=== PATIENT | male | born 1945 | race Caucasian/White ===

== ENCOUNTER 2023-11-21 19:23 | Inpatient (IN) | payer BC, OTHER ==
[~2023-11-21] VITALS: Ht 182.9 cm; Wt 112.3 kg
[2023-11-21 20:11] LABS: Basophils # (auto) 0 10 ^3/uL (0-0.2); Basophils % (auto) 0.6 % (0.0-2.0); Eosinophils # (auto) 0.2 10 ^3/uL (0-0.8); Eosinophils % (auto) 3.7 % (0.0-7.0); Hematocrit 42.1 % (41.0-53.0); Hemoglobin 14.2 g/dL (13.5-17.5); Lymphocytes # (auto) 1.3 10 ^3/uL (0.4-5.4); Lymphocytes % (auto) 26.2 % (10.0-50.0); Mean Corpuscular Hgb Conc. 33.7 g/dL (32.0-36.0); Mean Corpuscular Volume 94.8 fL (80.0-100.0); Monocytes # (auto) 0.3 10 ^3/uL (0-1.3); Monocytes % (auto) 6.1 % (0.0-12.0); Neutrophils # (auto) 3.2 10 ^3/uL (1.6-8.6); Neutrophils % (auto) 63.4 % (37.0-80.0); Nucleated Red Blood Cells % 0.1 %; Platelet Count (auto) 211 10^3/uL (140-450); Red Blood Cells 4.44 10^6/uL (4.5-5.90); Red Cell Distribution Width 13.2 % (11.8-14.3)
[2023-11-21] MEDS: SODIUM CHLORIDE 0.9% 500 ML IVB ONE (20:13)
[2023-11-21 20:30] LABS: Alanine Aminotransferase 35 U/L (7-40); Alkaline Phosphatase 108 U/L (46-116); Anion Gap 6 (5-15); Aspartate Aminotransferase 21 U/L (13-40); BUN/Creatinine Ratio 15.9 (10.0-20.0); Blood Alcohol < 3.0 mg/dL (<10); Blood Urea Nitrogen 13 mg/dL (9-23); Calcium 9.7 mg/dL (8.7-10.4); Carbon Dioxide 28 mmol/L (20-31); Chloride 106 mmol/L (98-107); Glucose 142 mg/dL (74-106); Potassium 3.8 mmol/L (3.5-5.1); Sodium 140 mmol/L (136-145)
[2023-11-21 20:31] LABS: Bilirubin, Total 0.2 mg/dL (0.2-1.0); Total Protein 7.1 g/dL (5.7-8.2)
[2023-11-21 20:43] VITALS: PULSE 67; RESP 20; O2SAT 96
[2023-11-21] MEDS ORDERED: DOCUSATE SOD 100 MG CAP PO PRN (23:00)
[2023-11-21] MEDS ORDERED: HYDROcodone-ACET 5/325MG TAB PO PRN (23:00)
[2023-11-21] MEDS ORDERED: MORPHINE SULFATE INJ 2 MG/ml SYRG IV PRN (23:00)
[2023-11-21] MEDS ORDERED: NITROGLYCERIN 0.4 MG SL TAB SL PRN (23:00)
[2023-11-21] MEDS ORDERED: LORazepam 2MG/ML-1ML VIAL IV PRN (23:00)
[2023-11-21] MEDS: SODIUM CHLORIDE 0.9% 1,000 ML IV SCH (23:24)
[2023-11-21 23:54] LABS: Urine Bacteria FEW /hpf (None Seen); Urine Blood Negative /uL (Negative); Urine Clarity Turbid (Clear); Urine Mucus FEW (None Seen); Urine Protein, UAD Negative (Negative); Urine Specific Gravity 1.014 (1.001-1.035); Urine Urobilinogen Normal (Negative); Urine WBC 8 /hpf (0 - 3); Urine WBC Clumps PRESENT /hpf (None Seen)
[2023-11-21 23:55] LABS: Amphetamine Screen, Urine Neg (NEGATIVE); Barbiturate Scree,Urine Neg (NEGATIVE); Benzodiazephine Screen, Urine Pos (NEGATIVE); Cannabinoid Screen, Urine Neg (NEGATIVE); Cocaine Screen, Urine Neg (NEGATIVE); Opiate Scree,Urine Neg (NEGATIVE); Phencyclidine Screen, Urine Neg (NEGATIVE)
[2023-11-21 23:59] LABS: Urine Color STRAW (Yellow)
[2023-11-22] VITALS (9 sets, daily range): BP systolic 105–170; BP diastolic 45–91; PULSE 48–109; RESP 16–19; TEMP 97.6–98.5; O2SAT 0–96
[2023-11-22] MEDS: ACETAMINOPHEN 325 MG TAB PO PRN (01:07)
[2023-11-22 06:45] LABS: Basophils # (auto) 0 10 ^3/uL (0-0.2); Basophils % (auto) 0.2 % (0.0-2.0); Eosinophils # (auto) 0.2 10 ^3/uL (0-0.8); Eosinophils % (auto) 2.1 % (0.0-7.0); Hematocrit 45.1 % (41.0-53.0); Hemoglobin 15.5 g/dL (13.5-17.5); Lymphocytes # (auto) 1.6 10 ^3/uL (0.4-5.4); Lymphocytes % (auto) 22.5 % (10.0-50.0); Mean Corpuscular Hemoglobin 32.6 pg (28.0-32.0); Mean Corpuscular Hgb Conc. 34.3 g/dL (32.0-36.0); Monocytes # (auto) 0.4 10 ^3/uL (0-1.3); Monocytes % (auto) 6.2 % (0.0-12.0); Platelet Count (auto) 214 10^3/uL (140-450); Red Blood Cells 4.75 10^6/uL (4.5-5.90); Red Cell Distribution Width 13.2 % (11.8-14.3); White Blood Cell 7.3 10^3/uL (4.4-10.8)
[2023-11-22 07:02] LABS: Anion Gap 8 (5-15); Carbon Dioxide 26 mmol/L (20-31); Chloride 110 mmol/L (98-107); Potassium 3.2 mmol/L (3.5-5.1); Sodium 144 mmol/L (136-145)
[2023-11-22 07:04] LABS: Calcium 9.5 mg/dL (8.7-10.4)
[2023-11-22 07:08] LABS: BUN/Creatinine Ratio 13.3 (10.0-20.0); Blood Urea Nitrogen 8 mg/dL (9-23); Glucose 111 mg/dL (74-106)
[2023-11-22] MEDS: levETIRAcetam 500 mg/100ml 100 ML IV SCH (10:09)
[2023-11-22] MEDS ORDERED: HYDR50TA47 PO (12:54)
[2023-11-22] MEDS ORDERED: CLON0.1T PO (12:54)
[2023-11-22] MEDS ORDERED: LEVE250T78 PO (12:54)
[2023-11-22] MEDS ORDERED: MET50T PO (12:54)
[2023-11-22] MEDS ORDERED: LOSA-534 PO (12:54)
[2023-11-22] MEDS ORDERED: RISP1TAB63 PO (12:54)
[2023-11-22] MEDS ORDERED: SIMV20TA20 PO (12:55)
[2023-11-22] MEDS ORDERED: TAMS0.4C39 PO (12:55)
[2023-11-22] MEDS ORDERED: FIN5T PO (12:55)
[2023-11-22] MEDS ORDERED: LEVO25TA6 PO (12:55)
[2023-11-22] MEDS ORDERED: LAMO100T44 PO (12:55)
[2023-11-22] MEDS: lamoTRIgine 100 MG TAB PO SCH (21:52)
[2023-11-22] MEDS: POTASSIUM CHL 20 Meq TABLET PO ONE (21:52)
[2023-11-23] VITALS (9 sets, daily range): BP systolic 92–149; BP diastolic 46–77; PULSE 50–99; RESP 17–19; TEMP 98–99.3; O2SAT 93–95
[2023-11-23 02:07] LABS: Potassium 3.7 mmol/L (3.5-5.1)
[2023-11-23] MEDS: hydrALAZINE HCL 20 MG/ML VL IV PRN (06:05)
[2023-11-23] MEDS: METOPROLOL TARTRATE 1MG/1ML-5ML VIAL IV ONE (07:02)
[2023-11-23 07:09] LABS: Basophils # (auto) 0 10 ^3/uL (0-0.2); Basophils % (auto) 0.4 % (0.0-2.0); Eosinophils # (auto) 0.1 10 ^3/uL (0-0.8); Eosinophils % (auto) 1.1 % (0.0-7.0); Hematocrit 47.9 % (41.0-53.0); Hemoglobin 16.5 g/dL (13.5-17.5); Lymphocytes # (auto) 1.5 10 ^3/uL (0.4-5.4); Lymphocytes % (auto) 14.9 % (10.0-50.0); Mean Corpuscular Hemoglobin 32.6 pg (28.0-32.0); Mean Corpuscular Hgb Conc. 34.5 g/dL (32.0-36.0); Mean Corpuscular Volume 94.4 fL (80.0-100.0); Monocytes # (auto) 0.7 10 ^3/uL (0-1.3); Monocytes % (auto) 6.9 % (0.0-12.0); Neutrophils # (auto) 7.6 10 ^3/uL (1.6-8.6); Neutrophils % (auto) 76.7 % (37.0-80.0); Nucleated Red Blood Cells % 0.1 %; Platelet Count (auto) 229 10^3/uL (140-450); Red Blood Cells 5.07 10^6/uL (4.5-5.90); Red Cell Distribution Width 13.3 % (11.8-14.3); White Blood Cell 9.9 10^3/uL (4.4-10.8)
[2023-11-23 07:28] LABS: Anion Gap 9 (5-15); Carbon Dioxide 25 mmol/L (20-31); Chloride 107 mmol/L (98-107); Potassium 3.6 mmol/L (3.5-5.1); Sodium 141 mmol/L (136-145)
[2023-11-23 07:29] LABS: Calcium 9.9 mg/dL (8.7-10.4)
[2023-11-23 07:34] LABS: BUN/Creatinine Ratio 12.5 (10.0-20.0); Blood Urea Nitrogen 9 mg/dL (9-23); Glucose 137 mg/dL (74-106)
[2023-11-23] MEDS: METOPROLOL TARTRATE 50 MG TAB PO SCH (09:33)
[2023-11-23 18:44] LABS: Triglycerides 168 mg/dL (< 150)
[2023-11-23 18:45] LABS: LDL Cholesterol 134 mg/dL (< 100)
[2023-11-23 18:46] LABS: Cholesterol 210 mg/dL (< 200); HDL Cholesterol 58 mg/dL (40-59)
[2023-11-23] MEDS: ONDANSETRON HCL 4 MG/2 ML VIAL IV PRN (22:08)
[2023-11-23] MEDS: APIXABAN 5 MG TAB PO SCH (22:09)
[2023-11-24] VITALS (7 sets, daily range): BP systolic 110–156; BP diastolic 63–82; PULSE 51–104; RESP 17–20; TEMP 97.7–98.9; O2SAT 90–94
[2023-11-24 06:35] LABS: Basophils # (auto) 0 10 ^3/uL (0-0.2); Basophils % (auto) 0.3 % (0.0-2.0); Eosinophils # (auto) 0.2 10 ^3/uL (0-0.8); Eosinophils % (auto) 2.3 % (0.0-7.0); Hematocrit 44.4 % (41.0-53.0); Lymphocytes # (auto) 1.8 10 ^3/uL (0.4-5.4); Lymphocytes % (auto) 19.5 % (10.0-50.0); Mean Corpuscular Hemoglobin 32.3 pg (28.0-32.0); Mean Corpuscular Hgb Conc. 33.7 g/dL (32.0-36.0); Mean Corpuscular Volume 95.8 fL (80.0-100.0); Monocytes # (auto) 0.7 10 ^3/uL (0-1.3); Neutrophils # (auto) 6.5 10 ^3/uL (1.6-8.6); Neutrophils % (auto) 69.9 % (37.0-80.0); Nucleated Red Blood Cells % 0.1 %; Platelet Count (auto) 221 10^3/uL (140-450); Red Blood Cells 4.63 10^6/uL (4.5-5.90); Red Cell Distribution Width 13.6 % (11.8-14.3); White Blood Cell 9.3 10^3/uL (4.4-10.8)
[2023-11-24 06:44] LABS: Chloride 108 mmol/L (98-107); Potassium 4.3 mmol/L (3.5-5.1); Sodium 141 mmol/L (136-145)
[2023-11-24 06:45] LABS: Anion Gap 7 (5-15); Calcium 9.7 mg/dL (8.7-10.4); Carbon Dioxide 26 mmol/L (20-31)
[2023-11-24 06:50] LABS: BUN/Creatinine Ratio 15.5 (10.0-20.0); Blood Urea Nitrogen 11 mg/dL (9-23); Glucose 129 mg/dL (74-106)
[2023-11-24] MEDS ORDERED: KEP500T PO (15:19)
[2023-11-24] MEDS ORDERED: APIX5TAB PO (15:21)
[2023-11-25] VITALS (7 sets, daily range): BP systolic 97–186; BP diastolic 58–117; PULSE 59–86; RESP 16–21; TEMP 37; O2SAT 90–96
[2023-11-25 08:17] LABS: Basophils # (auto) 0 10 ^3/uL (0-0.2); Basophils % (auto) 0.6 % (0.0-2.0); Eosinophils # (auto) 0.3 10 ^3/uL (0-0.8); Eosinophils % (auto) 4.2 % (0.0-7.0); Hematocrit 43.3 % (41.0-53.0); Hemoglobin 14.6 g/dL (13.5-17.5); Lymphocytes # (auto) 1.8 10 ^3/uL (0.4-5.4); Lymphocytes % (auto) 24.2 % (10.0-50.0); Mean Corpuscular Hemoglobin 32.5 pg (28.0-32.0); Mean Corpuscular Hgb Conc. 33.8 g/dL (32.0-36.0); Mean Corpuscular Volume 96.1 fL (80.0-100.0); Monocytes # (auto) 0.4 10 ^3/uL (0-1.3); Monocytes % (auto) 5.9 % (0.0-12.0); Neutrophils # (auto) 4.9 10 ^3/uL (1.6-8.6); Neutrophils % (auto) 65.1 % (37.0-80.0); Nucleated Red Blood Cells % 0.1 %; Platelet Count (auto) 213 10^3/uL (140-450); Red Blood Cells 4.51 10^6/uL (4.5-5.90); Red Cell Distribution Width 13.2 % (11.8-14.3); White Blood Cell 7.6 10^3/uL (4.4-10.8)
[2023-11-25 08:27] LABS: Anion Gap 5 (5-15); Carbon Dioxide 29 mmol/L (20-31); Chloride 108 mmol/L (98-107); Potassium 4.1 mmol/L (3.5-5.1); Sodium 142 mmol/L (136-145)
[2023-11-25 08:29] LABS: Calcium 9.4 mg/dL (8.7-10.4)
[2023-11-25 08:33] LABS: Glucose 118 mg/dL (74-106)
[2023-11-25 08:34] LABS: BUN/Creatinine Ratio 13.4 (10.0-20.0); Blood Urea Nitrogen 9 mg/dL (9-23)
== END 2023-11-25 17:15 | disposition hospice, home (50) | DRG 101 ==
LOC: ER 19:23 → EDBD 19:23 → TELE 22:58 → TELE-WESTW 11-22 01:46
PROVIDERS: ADMIT Nurse Practitioner Family; ATTEND Hospitalist
DX: G40.901 Epilepsy, unspecified, not intractable, with status epilepticus (principal); I48.0 Paroxysmal atrial fibrillation; F03.90 Unspecified dementia, unspecified severity, without behavioral disturbance, psychotic disturbance, mood disturbance, and anxiety; E78.5 Hyperlipidemia, unspecified; I69.30 Unspecified sequelae of cerebral infarction; J44.9 Chronic obstructive pulmonary disease, unspecified; I10 Essential (primary) hypertension; E11.9 Type 2 diabetes mellitus without complications; G93.89 Other specified disorders of brain; R31.0 Gross hematuria; Z79.899 Other long term (current) drug therapy
CPT/HCPCS: 36415; 70450; 80048; 80053; 80061; 80307; 80320; 81001; 83735; 84132; 84443; 85025; 87081; 92610; 93005; 93306; 96361; 97110; 97116; 97163; 97530; 99291; G0378; J2405